=== PATIENT | female | born 1985 | race Caucasian/White ===

== ENCOUNTER 2017-01-29 21:53 | Emergency (ER) | payer MEDICAID ==
[~2017-01-29] VITALS: Ht 152.4 cm; Wt 54.4 kg
[~2017-01-29 21:53] MED LIST: FLOR.1 PO
[2017-01-29 22:09] VITALS: BP_SYST 128
[2017-01-29 22:45] VITALS: BP_SYST 128
== END 2017-01-29 22:45 | disposition home or self-care (01) ==
LOC: SED 21:53
DX: J35.01 Chronic tonsillitis (principal); J40 Bronchitis, not specified as acute or chronic
CPT/HCPCS: 99283

== ENCOUNTER 2017-07-12 15:04 | Emergency (ER) | payer MEDICAID ==
[~2017-07-12] VITALS: Ht 152.4 cm; Wt 54.4 kg
[2017-07-12 15:08] VITALS: BP_SYST 124
[2017-07-12 16:09] VITALS: BP_SYST 122
== END 2017-07-12 16:09 | disposition home or self-care (01) ==
LOC: SED 15:04
DX: T63.441A Toxic effect of venom of bees, accidental (unintentional), initial encounter (principal); L03.211 Cellulitis of face; Z98.51 Tubal ligation status; Y92.89 Other specified places as the place of occurrence of the external cause
CPT/HCPCS: 99283

== ENCOUNTER 2018-03-24 17:10 | Emergency (ER) | payer MEDICAID ==
[~2018-03-24] VITALS: Ht 154.9 cm; Wt 61.7 kg
[2018-03-24 17:36] VITALS: BP_SYST 141
--- NOTE | 2018-03-24 17:51 | NUR ---
Patient to ER [facility]. Side rails up.
--- NOTE | 2018-03-24 17:54 | NUR ---
Pt brought by self ,A&Ox4, pt presents to ER with neck pain radiating to shoulders,denies trauma, skin pink and warm, cap refill <3, VS WNL, afebrile.
[2018-03-24] MEDS ORDERED: KETOROLAC TROMETHAMINE 60 MG/2 ML VIAL IM ONE (18:00)
--- NOTE | 2018-03-24 18:30 | NUR ---
Pt. sitting up in bed alert & oriented x4 states pain is 7/10.
--- NOTE | 2018-03-24 18:50 | NUR ---
Pt request to speak with PHONE SCREENER, pt states marlene would like to know why she is having pain, to order test to find out source or reason for pain. [email or web address] request PHONE SCREENER to further discuss diagnosis. pt states pain is improved 08/25.
--- NOTE | 2018-03-24 18:59 | NUR ---
Pt. refused hydrocodone, states she has to drive. Notified Shanique COKER
--- NOTE | 2018-03-24 19:05 | NUR ---
Shanique DINING ROOM HOST with patient discussing medication concerns.
[2018-03-24] MEDS ORDERED: HYDROcodone/ACETAMIN 5-325 MG TAB (NORCO/ VICODIN) PO ONE (19:15)
--- NOTE | 2018-03-24 19:33 | NUR ---
Patient given written and verbal discharge instructions and verbalizes understanding. ER [employer] INSTALLER discussed with patient the results and treatment provided. Patient in stable condition. ID arm band removed. Rx of Motrin given. Patient educated on pain management and to follow up with PMD. Pain Scale . Opportunity for questions provided and answered. Medication side effect fact sheet provided. Pt states she has an appointment with VIVIAN rose at 2030 for follow-up
== END 2018-03-24 19:41 | disposition home or self-care (01) ==
LOC: SED 17:10
DX: M54.2 Cervicalgia (principal); R03.0 Elevated blood-pressure reading, without diagnosis of hypertension; F41.9 Anxiety disorder, unspecified; Z90.49 Acquired absence of other specified parts of digestive tract; Z98.51 Tubal ligation status
CPT/HCPCS: 96372; 99283; J1885

== ENCOUNTER 2019-02-03 16:34 | Emergency (ER) | payer MEDICAID ==
[~2019-02-03] VITALS: Ht 154.9 cm; Wt 63.5 kg
[2019-02-03 16:43] VITALS: BP_SYST 114
[2019-02-03] MEDS ORDERED: KETOROLAC TROMETHAMINE 60 MG/2 ML VIAL IM ONE (17:15)
[2019-02-03] MEDS ORDERED: KETOROLAC TROMETHAMINE 30 MG VIAL IVP ONE (17:30)
[2019-02-03 17:37] LABS: BASOPHILS % (AUTO) 0.5 % (0.0-2.0); EOSINOPHILS # (AUTO) 0.2 K/uL (0.0-0.4); EOSINOPHILS % (AUTO) 1.7 % (0.0-4.0); HEMATOCRIT 42.1 % (36-48); HEMOGLOBIN 14.2 g/dL (12.0-16.0); LYMPHOCYTES # (AUTO) 3.3 K/uL (1.0-5.5); LYMPHOCYTES % (AUTO) 33.8 % (20.5-51.5); MEAN CORPUSCULAR HEMOGLOBIN 29 pg (27-31); MEAN CORPUSCULAR HGB CONC 34 % (32-36); MEAN CORPUSCULAR VOLUME 84 fL (79.0-98.0); MONOCYTES # (AUTO) 0.7 K/uL (0.0-1.0); MONOCYTES % (AUTO) 6.7 % (1.7-9.3); NEUTROPHILS # (AUTO) 5.7 K/uL (1.8-7.7); NEUTROPHILS % (AUTO) 57.3 % (40.0-70.0); PLATELET COUNT (AUTO) 281 K/uL (130-430); RED BLOOD CELL COUNT(AUTO) 4.99 MIL/uL (4.2-6.2); WHITE BLOOD COUNT (AUTO) 9.9 K/uL (4.8-10.8)
[2019-02-03 18:11] LABS: ANION GAP 6 (5-15); CALCIUM 9.2 mg/dL (8.4-11.0); CHLORIDE 101 mmol/L (98-107); CREATININE 0.65 mg/dL (0.55-1.30); GLUCOSE 90 mg/dL (70-99); SODIUM SERUM 135 mmol/L (136-145); UREA NITROGEN, BLOOD 11 mg/dL (8-21)
[2019-02-03 18:19] LABS: GFR AFRICAN AMERICAN 134 mL/min (>90)
[2019-02-03 19:07] VITALS: BP_SYST 109
== END 2019-02-03 19:07 | disposition home or self-care (01) ==
LOC: SED 16:34
DX: R07.9 Chest pain, unspecified (principal); F41.9 Anxiety disorder, unspecified
CPT/HCPCS: 36415; 71045; 80048; 81002; 81025; 84484; 85025; 93005; 96374; 99284; J1885

== ENCOUNTER 2019-03-20 09:53 | Emergency (ER) | payer MEDICAID ==
[~2019-03-20] VITALS: Ht 154.9 cm; Wt 63.5 kg
[2019-03-20 09:55] VITALS: BP_SYST 136
--- NOTE | 2019-03-20 09:55 | NUR ---
Patient triaged and placed in waiting room. VSS and patient appears in no acute distress at this time. Accompanied by SPOUSE, awaiting available bed, and MD notified of need for MSE.
--- NOTE | 2019-03-20 11:11 | NUR ---
BROUGHT BACK TO BED #2 AND TRIAGED. REPORT GIVEN TO SOFIA
[2019-03-20] MEDS ORDERED: LORazepam 2 MG/ML VIAL IM ONE (11:30)
--- NOTE | 2019-03-20 11:30 | NUR ---
Patient presented to ER C/O Anxiety. Patient A&Ox4, skin pink and warm, wheelchair to ER, afebrile, skin pink and warm, jittery, no distress noted, placed on leather heel breaster and pulse-ox monitor upon arrival. Patient states she has anxiety increased today, pt states she was seen in [facility] ER yesterday for anxiety.
--- NOTE | 2019-03-20 11:31 | NUR ---
ER at bedside examining patient.
--- NOTE | 2019-03-20 13:16 | NUR ---
Patient given written and verbal discharge instructions and verbalizes understanding. ER MD discussed with patient the results and treatment provided. Patient in stable condition. ID arm band removed. Rx of atarax given. Patient educated on pain management and to follow up with PMD. Pain Scale 0/10. Opportunity for questions provided and answered. Medication side effect fact sheet provided.
[2019-03-20 13:20] VITALS: BP_SYST 107
== END 2019-03-20 13:16 | disposition home or self-care (01) ==
LOC: SED 09:53
DX: F41.0 Panic disorder [episodic paroxysmal anxiety] (principal); F15.90 Other stimulant use, unspecified, uncomplicated; F17.290 Nicotine dependence, other tobacco product, uncomplicated
CPT/HCPCS: 96372; 99283; J2060

== ENCOUNTER 2019-06-23 01:32 | Emergency (ER) | payer MEDICAID ==
[~2019-06-23] VITALS: Ht 154.9 cm; Wt 62.6 kg
[2019-06-23 02:20] VITALS: BP_SYST 104
--- NOTE | 2019-06-23 02:20 | NUR ---
Pt to ER bed 05, to gown. Pt presents with c/o redness, inflammation, and pain to left abdominal wall x 2 days from a bug bite.
--- NOTE | 2019-06-23 02:27 | NUR ---
Dr. Willams at bedside.
[2019-06-23] MEDS ORDERED: CLINDAMYCIN PHOSPHATE 300 MG/2 ML VIAL IM ONE (02:45)
--- NOTE | 2019-06-23 02:54 | NUR ---
Medication was given, pt tolerated well. Pt complains of pain and asked for pain medications. Dr. Willams made aware.
[2019-06-23] MEDS ORDERED: ACETAMINOPHEN 500 MG TABLET PO ONE (03:00)
[2019-06-23 03:36] VITALS: BP_SYST 112
--- NOTE | 2019-06-23 03:36 | NUR ---
Patient given written and verbal discharge instructions and verbalizes understanding. ER MD discussed with patient the results and treatment provided. Patient in stable condition. ID arm band removed. Rx of Levaquin given. Patient educated on pain management and to follow up with PMD. Pain Scale 4/10. Opportunity for questions provided and answered. Medication side effect fact sheet provided.
== END 2019-06-23 03:36 | disposition home or self-care (01) ==
LOC: SED 01:32
DX: L03.311 Cellulitis of abdominal wall (principal); K21.9 Gastro-esophageal reflux disease without esophagitis; F41.9 Anxiety disorder, unspecified; Z86.79 Personal history of other diseases of the circulatory system; Z86.73 Personal history of transient ischemic attack (TIA), and cerebral infarction without residual deficits
CPT/HCPCS: 96372; 99283; J3490

== ENCOUNTER 2020-08-04 06:37 | Emergency (ER) | payer MEDICAID ==
[~2020-08-04] VITALS: Ht 154.9 cm; Wt 54.4 kg
[2020-08-04 06:50] VITALS: BP_SYST 122
[2020-08-04 06:58] LABS: BILIRUBIN,URINE NEGATIVE (NEGATIVE); BLOOD, URINE 3+ (NEGATIVE); CLARITY/URINE CLEAR (CLEAR); COLOR,URINE YELLOW (YELLOW); GLUCOSE,URINE NEGATIVE (NEGATIVE); KETONES,URINE NEGATIVE (NEGATIVE); LEUKOCYTE ESTERASE ,URINE NEGATIVE (NEGATIVE); NITRITE, URINE NEGATIVE (NEGATIVE); PH,URINE 6.5 (5.0-8.0); PROTEIN URINE NEGATIVE (NEGATIVE); UROBILINOGEN,URINE 0.2 (0.2-1.0)
[2020-08-04 07:19] LABS: EOSINOPHILS # (AUTO) 0.2 K/uL (0.0-0.4); NEUTROPHILS % (AUTO) 57.9 % (40.0-70.0)
[2020-08-04 07:25] LABS: ANION GAP 8 (5-15); BASOPHILS % (AUTO) 0.5 % (0.0-2.0); CALCIUM 8.8 mg/dL (8.4-11.0); CHLORIDE 105 mmol/L (98-107); EOSINOPHILS % (AUTO) 2.3 % (0.0-4.0); GLUCOSE 99 mg/dL (70-99); HEMATOCRIT 42.6 % (36-48); HEMOGLOBIN 14.2 g/dL (12.0-16.0); LYMPHOCYTES # (AUTO) 2.6 K/uL (1.0-5.5); LYMPHOCYTES % (AUTO) 32.2 % (20.5-51.5); MEAN CORPUSCULAR HEMOGLOBIN 28 pg (27-31); MEAN CORPUSCULAR HGB CONC 33 % (32-36); MEAN CORPUSCULAR VOLUME 85 fL (79.0-98.0); MONOCYTES # (AUTO) 0.6 K/uL (0.0-1.0); MONOCYTES % (AUTO) 7.1 % (1.7-9.3); NEUTROPHILS # (AUTO) 4.7 K/uL (1.8-7.7); PLATELET COUNT (AUTO) 284 K/uL (130-430); RED BLOOD CELL COUNT(AUTO) 5.04 MIL/uL (4.2-6.2); RED CELL DISTRIBUTION WIDTH 13.9 % (9.0-15.0); SODIUM SERUM 140 mmol/L (136-145); UREA NITROGEN, BLOOD 10 mg/dL (8-21); WHITE BLOOD COUNT (AUTO) 8.1 K/uL (4.8-10.8)
[2020-08-04 07:26] LABS: GFR AFRICAN AMERICAN 122 mL/min (>90)
[2020-08-04 07:30] LABS: INR 0.9 (0.8-1.2); PROTHROMBIN TIME 9.4 SECS (9.5-12.5)
[2020-08-04 07:31] LABS: ALANINE AMINOTRANSFERASE 25 U/L (12-78); ALBUMIN 3.7 g/dL (3.4-4.8); AMYLASE 103 U/L (0-100); ASPARTATE AMINOTRANSFERASE 21 U/L (10-37); LIPASE 117 U/L (73-393); TOTAL BILIRUBIN 0.1 mg/dL (0.0-1.0)
[2020-08-04 07:34] LABS: BACTERIA,URINE FEW /HPF (None Seen); MUCUS,URINE 1+ /LPF (None Seen); RBC,URINE 0-3 /HPF (0-3); WBC,URINE 0-3 /HPF (0-3)
[2020-08-04 07:42] LABS: C-REACTIVE PROTEIN QUANT < 0.2 mg/dL (0-0.5)
[2020-08-04] MEDS ORDERED: IBUP-1969 PO (07:55)
[2020-08-04] MEDS: NACL 0.9% 1,000 ML IV ONE (08:43)
[2020-08-04 08:46] VITALS: BP_SYST 120
== END 2020-08-04 08:48 | disposition home or self-care (01) ==
LOC: SED 06:37
DX: R10.32 Left lower quadrant pain (principal); E86.0 Dehydration
CPT/HCPCS: 36415; 74176; 76376; 80053; 81000; 82150; 83605; 83690; 84703; 85025; 85610; 85730; 86140; 99284; J7030

== ENCOUNTER 2021-03-23 14:18 | Emergency (ER) | payer MEDICAID, SELFPAY ==
[~2021-03-23] VITALS: Ht 154.9 cm; Wt 60.8 kg
[~2021-03-23 14:18] MED LIST changes: +IBUP-1969 PO
--- NOTE | 2021-03-23 14:20 | NUR ---
Pt brought by self , A&Ox4 , pt presents to ER with cough / congestion, bodyaches, exposed to covid, VSS
--- NOTE | 2021-03-23 14:25 | NUR ---
Ronny castillo in EDM - 03/23/21 at 1743 by [email or web address] Pt brought by self, A&Ox4, pt presents to ER with bodyaches , cough , congestion, skin pink and warm, cap refill <3, VSS
[2021-03-23 14:37] VITALS: BP_SYST 130
--- NOTE | 2021-03-23 17:43 | NUR ---
Pt A&Ox4, VSS , respirations even and unlabored
--- NOTE | 2021-03-23 18:05 | NUR ---
Dr Knight evaluating patient at bedside
[2021-03-23 19:19] VITALS: BP_SYST 130
--- NOTE | 2021-03-23 19:19 | NUR ---
Patient given written and verbal discharge instructions and verbalizes understanding. ER MD discussed with patient the results and treatment provided. Patient in stable condition. ID arm band removed. No Rx given. Patient educated on pain management and to follow up with PMD. Pain Scale 2/10 . Opportunity for questions provided and answered. Medication side effect fact sheet provided.
== END 2021-03-23 19:19 | disposition home or self-care (01) ==
LOC: SED 14:18
DX: B34.9 Viral infection, unspecified (principal); F41.9 Anxiety disorder, unspecified; Z79.899 Other long term (current) drug therapy; Z20.822 Contact with and (suspected) exposure to COVID-19
CPT/HCPCS: 36415; 71045; 99284